=== PATIENT | female | born 1975 | race Caucasian/White ===

== ENCOUNTER 2018-05-19 21:16 | Emergency (ER) | payer BC, MEDICAID ==
[2018-05-19] MEDS ORDERED: Ondansetron 4 MG Tab.DIS PO ONE (22:21)
[2018-05-19] MEDS ORDERED: Ketorolac 30 MG/ML SDV IM ONE ×2 (22:24→22:25)
[2018-05-19] MEDS ORDERED: Ketorolac 15 MG/ML SDV IVPUSH ONE (22:30)
[2018-05-19] MEDS ORDERED: Ondansetron 4 MG/2 ML SDV IVPUSH ONE (22:30)
--- NOTE | 2018-05-19 23:18 | EDM.PDOC ---
ED HPI GENERAL MEDICAL PROBLEM - General Chief Complaint: Abdominal Pain Stated Complaint: RIGHT SIDE PAIN. Time Seen by Provider: 05/19/18 21:49 Source of Information: Reports: Patient History Limitations: Reports: No Limitations - History of Present Illness INITIAL COMMENTS - FREE TEXT/NARRATIVE: 42 yo F h/o gastric bypass 1 year ago comes in today with complaints of RUQ pain that radiates to the back that started today. The pain was originally 8-9/ 10 but is now 4/10. She stated she had a similar "attack" 2 weeks ago that lasted about an hour, but it resolved on its own. She states the pain is similar to when she had a "gallbladder attack", but she had a cholecystectomy back in 2016. She tried hydrocodone at home with no relief. Nothing makes the pain better or worse. She also c/o chills, nausea, abdominal distension. She also admits "I was naughty and ate too many crackers and cheetos which I'm not allowed to do after my gastric bypass". No other changes in eating habits and she denies fever, vomiting, diarrhea, dysuria, hematuria, or other GI/ complaints. She is passing gas and last normal BM was yesterday. She also c/o acute on chronic "numbness" that runs from the L side of her face down to her knee. She usually has it on the R side and was told it was d/t anxiety. She also c/o chronic "entire body pain that feels like the flu but is 10x worse". No other concerns at this time. PCP is Dr. Silvestre, last saw him about 1 month ago. Treatments WORKERS COMPENSATION ATTORNEY: Reports: Other (see below) Other Treatments WORKERS COMPENSATION ATTORNEY: hydrocodone Right Upper Abdomen Pain Score (Numeric/FACES): 8 - Related Data Allergies Allergy/AdvReac Type Severity Reaction Status Date / Time No Known Allergies Allergy Verified 12/31/13 01:47 Home Meds: Home Meds ALPRAZolam [Xanax] 0.5 mg PO BID PRN 05/19/18 [History] ClonazePAM [KlonoPIN] 0.5 mg PO ASDIRECTED PRN 05/19/18 [History] Levothyroxine 25 mcg PO DAILY 05/19/18 [History] Omeprazole 20 mg PO DAILY 05/19/18 [History] Ondansetron [Zofran ODT] 4 mg PO Q6H PRN #10 tab.dis 05/19/18 [Rx] Ondansetron [Zofran] 4 mg PO Q6H PRN 05/19/18 [History] QUEtiapine [SEROquel] 300 mg PO BEDTIME 05/19/18 [History] lamoTRIgine [Lamictal] 400 mg PO DAILY 05/19/18 [History] Past Medical History Neurological History: Reports: Migraines Psychiatric History: Reports: Anxiety, Bipolar, Depression - Past Surgical History GI Surgical History: Reports: Bariatric Procedure, Cholecystectomy Female Surgical History: Reports: Tubal Ligation Social & Family History - Tobacco Use Smoking Status *Q: Never Smoker - Caffeine Use Caffeine Use: Reports: Coffee, Energy Drinks - Recreational Drug Use Recreational Drug Use: No ED ROS GENERAL - Review of Systems Review Of Systems: See Below Constitutional: Reports: Chills. Denies: Fever, Decreased Appetite HEENT: Reports: Glasses Respiratory: Reports: No Symptoms. Denies: Shortness of Breath, Cough Cardiovascular: Reports: No Symptoms. Denies: Chest Pain Endocrine: Reports: No Symptoms GI/Abdominal: Reports: Abdominal Pain (RUQ that radiates to the back), Distension, Nausea. Denies: Constipation, Diarrhea, Decreased Appetite, Vomiting : Reports: No Symptoms. Denies: Discharge, Dysuria, Flank Pain, Hematuria Musculoskeletal: Reports: Other ("entire body pain" which is chronic) Skin: Reports: No Symptoms Neurological: Reports: Numbness (L side of face to knee; states it's a chronic issue d/t anxiety) Psychiatric: Reports: Anxiety ED EXAM, GI/ABD - Physical Exam Exam: See Below Exam Limited By: No Limitations General Appearance: Alert, WD/WN, Anxious Eyes: Bilateral: Normal Appearance, EOMI Throat/Mouth: Normal Inspection, Normal Lips, Normal Teeth, Normal Gums, Normal Oropharynx, Normal Voice, No Airway Compromise Head: Atraumatic, Normocephalic Neck: Normal Inspection, Supple, Non-Tender, Full Range of Motion Respiratory/Chest: No Respiratory Distress, Lungs Clear, Normal Breath Sounds, No Accessory Muscle Use, Chest Non-Tender Cardiovascular: Normal Peripheral Pulses, Regular Rate, Rhythm, No Edema, No Gallop, No JVD, No Murmur, No Rub GI/Abdominal Exam: Soft, Non-Tender, No Organomegaly, No Distention, No Abnormal Bruit, No Mass, Pelvis Stable, Abnormal Bowel Sounds (hyperactive). No : Distended, Guarding, Rigid, Rebound Back Exam: Normal Inspection, Full Range of Motion, NT Neurological: Alert, Oriented, CN II-XII Intact, Normal Cognition, Normal Gait, Normal Reflexes, No Motor/Sensory Deficits Psychiatric: Anxious Skin Exam: Warm, Dry, Intact, Normal Color, No Rash Course - Vital Signs Last Recorded V/S: Last Vital Signs Temp 97.7 F 05/19/18 21:38 Pulse 82 05/19/18 21:38 Resp 20 05/19/18 21:38 BP 142/94 H 05/19/18 21:38 Pulse Ox 100 05/19/18 21:38 - Orders/Labs/Meds Orders: Active Orders 24 hr Category Date Time Status KUB [Abdomen 1V Flat] [CR] Stat Exams 05/19/18 22:23 Taken Labs: Laboratory Tests 05/19/18 05/19/18 Range/Units 21:45 21:45 WBC 9.10 (3.98-10.04) K/mm3 RBC 4.47 (3.98-5.22) M/mm3 Hgb 12.9 (11.2-15.7) gm/L Hct 38.2 (34.1-44.9) % MCV 85.5 (79.4-94.8) fl MCH 28.9 (25.6-32.2) pg MCHC 33.8 (32.2-35.5) g/dl RDW Std Deviation 42.5 (36.4-46.3) fL Plt Count 351 (182-369) K/mm3 MPV 9.5 (9.4-12.3) fl Neut % (Auto) 62.7 (34.0-71.1) % Lymph % (Auto) 28.8 (19.3-51.7) % [place] % (Auto) 6.5 (4.7-12.5) % Eos % (Auto) 1.6 (0.7-5.8) Baso % (Auto) 0.2 (0.1-1.2) % Neut # (Auto) 5.70 (1.56-6.13) K/mm3 Lymph # (Auto) 2.62 (1.18-3.74) K/mm3 [place] # (Auto) 0.59 H (0.24-0.36) K/mm3 Eos # (Auto) 0.15 (0.04-0.36) K/mm3 Baso # (Auto) 0.02 (0.01-0.08) K/mm3 Sodium 141 (136-145) mEq/L Potassium 3.9 (3.5-5.1) mEq/L Chloride 108 H (98-107) mEq/L Carbon Dioxide 25 (21-32) mEq/L Anion Gap 11.9 (5-15) BUN 19 H (7-18) mg/dL Creatinine 1.0 (0.55-1.02) mg/dL Est Cr Clr Drug Dosing 68.61 mL/min Estimated GFR (MDRD) > 60 (>60) mL/min BUN/Creatinine Ratio 19.0 H (14-18) Glucose 104 (74-106) mg/dL Calcium 8.8 (8.5-10.1) mg/dL C-Reactive Protein < 0.2 (<1.0) mg/dL Lipase 258 (73-393) U/L Meds: Medications Discontinued Medications Generic Name Dose Route Start Last Admin Trade Name Freq PRN Reason Stop Dose Admin Ketorolac Tromethamine 30 mg 05/19/18 22:24 Toradol IM 05/19/18 22:25 ONETIME ONE Ketorolac Tromethamine 30 mg 05/19/18 22:25 Toradol IM 05/19/18 22:26 ONETIME ONE Ketorolac Tromethamine 15 mg 05/19/18 22:30 05/19/18 22:38 Toradol IVPUSH 05/19/18 22:31 15 mg ONETIME ONE Administration Ondansetron HCl 4 mg 05/19/18 22:21 Zofran Odt PO 05/19/18 22:22 ONETIME ONE Ondansetron HCl 4 mg 05/19/18 22:30 05/19/18 22:36 Zofran IVPUSH 05/19/18 22:31 4 mg ONETIME ONE Administration - Re-Assessments/Exams Free Text/Narrative Re-Assessment/Exam: 05/19/18 22:20 Toradol and Zofran ordered 05/19/18 22:23 KUB ordered 05/19/18 22:50 KUB reviewed by myself and Dr. Prather, nothing acute seen at this time. Some constipation present. CBC, CMP, CRP, Lipase ordered 05/19/18 23:50 CBC, CMP, CRP, Lipase all WNL. At this time, there is no concern for infection or any other emergency at this time. She is stable enough to go home. Will have her follow up with PCP. Departure - Departure Time of Disposition: 23:50 Disposition: Home, Self-Care 01 Condition: Good Clinical Impression: Abdominal pain - Discharge Information *PRESCRIPTION DRUG MONITORING PROGRAM REVIEWED*: Not Applicable *COPY OF PRESCRIPTION DRUG MONITORING REPORT IN PATIENT [place]: Not Applicable Prescriptions: Ondansetron [Zofran ODT] 4 mg PO Q6H PRN #10 tab.dis PRN Reason: Nausea Instructions: Nausea and Vomiting, Adult, [id number], Abdominal Pain, Adult, [id number] Referrals: Mendoza Cash MD [Primary Care Provider] - Forms: ED Department Discharge Additional Instructions: You were seen in the ED today for abdominal pain that radiated to the back. At this time, your workup has been negative for any infection or emergency and your pain seems to be manageable. Your gallbladder was removed in 2016, which means that you most likely do not have pain related to that. Recommend you follow up with your primary care provider. Will send you home a prescription for Zofran for ongoing nausea. You can also follow the BRAT diet if you continue to have nausea (Banana, rice, applesauce, toast) and liquids such as Gatorade, Pedialyte or water. Please return to ED if new or worsening symptoms. - My Orders Last 24 Hours: My Active Orders 05/19/18 22:23 KUB [Abdomen 1V Flat] [CR] Stat - Assessment/Plan Last 24 Hours: My Active Orders 05/19/18 22:23 KUB [Abdomen 1V Flat] [CR] Stat
--- NOTE | 2018-05-20 13:07 | CR ---
Abdomen: Supine view of the abdomen was obtained. Comparison: No prior abdominal x-ray. Sterilization clips are incidentally noted within the pelvis. Surgical anastomotic sutures are seen within the left upper abdomen. Scattered gas within small bowel and colon is seen which does not appear to be obstructive. No abnormal calcifications or discrete soft tissue finding is seen. Bony structures are within normal limits for the patient's age. Impression: 1. Findings which are felt to be incidental as noted above. Nothing acute is suspected. Diagnostic code #2
== END 2018-05-20 00:04 | disposition home or self-care (01) ==
LOC: JD.ED 21:16
DX: R10.11 Right upper quadrant pain (principal); F31.9 Bipolar disorder, unspecified; F41.9 Anxiety disorder, unspecified; Z79.899 Other long term (current) drug therapy
CPT/HCPCS: 36415; 74018; 80048; 83690; 85025; 86140; 96374; 96375; 99284; J1885; J2405